=== PATIENT | female | born 1965 | race Caucasian/White ===

== ENCOUNTER 2016-06-15 16:03 | Emergency (ER) | payer MEDICAID ==
--- NOTE | ~2016-06-15 | ER ---
PATIENT'S NAME: CAYLA MADRID [facility] AGE: 51 Y [address] ROOM: [place], [place] [address] LOCATION: [facility] ADMIT DATE: 06/15/2016 ER/Outpatient Report DISCHARGE DATE: 06/15/2016 FAMILY PHYSICIAN: PHYSICIAN, NO ATTENDING PHYSICIAN: Ingrid Peoples Time of Arrival: 1603 hours. Time of Evaluation: 1619 hours. IDENTIFICATION: A 51-year-old female. CHIEF COMPLAINT: Her presenting complaint was numbness in hands and feet, sinus issues. When I go in the room, she is showing me her feet where the "chemical is leaking out" as well as pictures of her tongue and her arms. She states [place], and the patient has concerns about chemicals that she is exposed to. She apparently has been in town all day. She has been to the film archivist. She is calling the EPA but has not done that yet, although she states she has done that in the past. She perseverates on the same complaints over and over. She does not tell me anything about abdominal pain or sinuses until after she became angry. Her feet are dirty, covered in dirt. I did attempt to washed that off with a washcloth and soap. She became very angry, accused me of saying things and used foul language and wanted to know if I was going to give her medications to refill. She was prescribed amoxicillin, omeprazole, and ranitidine on June 04, and she feels that she needs to have those refilled, although she does not feel that the stomach medicines are helping her. She complains of belching, abdominal distention. She states her abdomen is hard. She has had no nausea or vomiting. She states that she has had her lab work obtained before, probably on . She states she has liver and kidney failure but that her labs are always normal. Again, she perseverates on the farm chemical, and the dog that is ill and refuses any lab work and continues to [employer], and Law Enforcement were called at this point. I did offer to help the patient in anyway I could. She continued to yell despite asking to quiet her voice. I offered to have Rodrigo Allred come evaluate her. She refused Rodrigo Allred evaluation. She denies any suicidal ideation. ALLERGIES: NO KNOWN DRUG ALLERGIES. CURRENT MEDICATIONS: I do not have a list of her current medications, and we did not ever obtain a thorough list of her medications. She had in her purse omeprazole, ranitidine, and amoxicillin. PATIENT'S NAME: CAYLA MADRID [facility] AGE: 51 Y [address] ROOM: [place] [id number] LOCATION: [facility] ADMIT DATE: 06/15/2016 ER/Outpatient Report DISCHARGE DATE: 06/15/2016 FAMILY PHYSICIAN: PHYSICIAN, DANTE ATTENDING PHYSICIAN: Ingrid Peoples SOCIAL HISTORY: Tobacco use, unknown. Alcohol use, unknown. Drug use, unknown. REVIEW OF SYSTEMS: The patient complains of an infection in brain, traveling down to her sinuses, a previous root canal and you should not have root canals because it causes breast cancer, she has rotten teeth, abdominal distention, and chemical leaking out of her body. The patient denies any suicidal ideation. PHYSICAL EXAMINATION: VITAL SIGNS: Height 5 feet 2 inches, weight 65 kg, blood pressure 109/68. GENERAL: A 51-year-old, very agitated female, in no acute distress. HEENT: Head: Normocephalic, atraumatic. EARS: TMs translucent both ears. Pupils are equal and reactive to light and accommodation. Extraocular movements intact. Nose: Mucosa pink. No lesions or drainage. No sinus tenderness. Mouth: No lesions. Teeth in poor repair. Pharynx benign. NECK: Supple. No lymphadenopathy. No nuchal rigidity. LUNGS: Clear to auscultation. HEART: Regular rate and rhythm. ABDOMEN: Soft, nondistended, nontender. SKIN: The patient had some excoriated lesions and scratches noted on her. No other rashes or burn. She kept talking about koenig. No koenig or other rashes were noted. She has some dirt on her feet, and again as attempting to wash off the dirt, she becomes very angry. PSYCH: The patient is paranoid. No insight, and she refuses any mental health evaluation. She is not currently suicidal. Law Enforcement is present. IMPRESSION AND PLAN: 1. Paranoia with history of schizophrenia. The patient refuses Rodrigo Chalino evaluation. 2. Abdominal complaint. Omeprazole was refilled for 20 mg 1 daily for 14 days. 3. Dental problems. I recommend to the dentist. I refused to continue to fill her antibiotics. At this point, I do not see any need for the antibiotics. The patient is belligerent and upset, and at that point, the emergency room. INGRID PEOPLES MD CAR/modl PATIENT'S NAME: CAYLA MADRID [facility] AGE: 51 Y [address] ROOM: [place] [address] LOCATION: [facility] ADMIT DATE: 06/15/2016 ER/Outpatient Report DISCHARGE DATE: 06/15/2016 FAMILY PHYSICIAN: , DANTE ATTENDING PHYSICIAN: Ingrid Peoples /[id number] d: 06/15/16 2306 t: 06/22/16 1423, OUTPATIENT REPORT
== END 2016-06-15 16:53 | disposition disaster alternative care site (69) ==
LOC: GMED 16:03
DX: F20.0 Paranoid schizophrenia (principal)

== ENCOUNTER 2016-07-29 18:56 | Emergency (ER) | payer MEDICAID | END 2016-07-29 19:45 | disposition disaster alternative care site (69) | LOC: GMED 18:56 | DX: Z53.21 Procedure and treatment not carried out due to patient leaving prior to being seen by health care provider (principal) ==